=== PATIENT | female | born 1965 | race Caucasian/White ===

== ENCOUNTER → 2021-11-12 | Outpatient (CLI) | payer MEDICARE, BC ==
[~2021-11-12] MED LIST: B-12100010 PO; BUPR150T12 PO; D-50CAP PO; DULO1CAP5 PO; FAMO40TA3 PO; OXYB10TA23 PO; PANT40TA29 PO; PHEN30CA21 PO
== END ==
LOC: M SOG 08:41
PROVIDERS: ATTEND Orthopaedic Surgery
DX: M25.511 Pain in right shoulder (principal)

== ENCOUNTER → 2021-11-13 | Outpatient (CLI) | payer BC, MEDICARE | LOC: M PLAIMG 11:42 | PROVIDERS: ATTEND Nurse Practitioner Family | DX: S09.93XA Unspecified injury of face, initial encounter (principal); W19.XXXA Unspecified fall, initial encounter; J01.90 Acute sinusitis, unspecified; Y92.9 Unspecified place or not applicable; Y93.9 Activity, unspecified; Y99.9 Unspecified external cause status ==

== ENCOUNTER → 2021-11-17 | Outpatient (CLI) | payer BC, MEDICARE ==
[~2021-11-17] VITALS: Ht 160 cm; Wt 97.5 kg
== END ==
LOC: M LABSMTC 11:02 → EDSTATUS 14:00
PROVIDERS: ATTEND Otolaryngology
DX: Z01.812 Encounter for preprocedural laboratory examination (principal); Z20.822 Contact with and (suspected) exposure to COVID-19

== ENCOUNTER → 2021-11-25 | Outpatient (CLI) | payer BC, MEDICARE | LOC: M LABSMTC 11:41 | PROVIDERS: ATTEND Anesthesiology | DX: Z01.812 Encounter for preprocedural laboratory examination (principal); Z20.822 Contact with and (suspected) exposure to COVID-19 ==

== ENCOUNTER 2021-11-27 11:34 | Day surgery (SDC) | payer BC, MEDICARE ==
[~2021-11-27] VITALS: Ht 160 cm; Wt 100.2 kg
[~2021-11-27 11:34] MED LIST changes: +dexameTHASONE 4 MG/ML 1ML VIAL (J1100 PER 1MG) IV ONE
[2021-11-27] MEDS ORDERED: LR 1,000 ML IV SCH ×2 (12:35→15:15)
[2021-11-27] MEDS ORDERED: propofoL 200 MG/20 ML VIAL As Ordered ONE (14:31)
[2021-11-27] MEDS ORDERED: LIDOCAINE 2% 100MG/5ML SDV (FOR ANES.) As Ordered ONE (14:31)
[2021-11-27] MEDS ORDERED: ONDANSETRON 4MG 2ML VIAL As Ordered ONE (14:31)
[2021-11-27] MEDS ORDERED: fentaNYL 100 MCG/2 ML INJECTION As Ordered ONE (14:31)
[2021-11-27] MEDS ORDERED: dexameTHASONE 4 MG/ML 1ML VIAL (J1100 PER 1MG) As Ordered ONE ×2 (14:31→14:32)
[2021-11-27] MEDS ORDERED: ROCURONIUM BROMIDE 50 MG/5 ML VIAL As Ordered ONE (14:31)
[2021-11-27] MEDS ORDERED: MIDAZOLAM INJ 2MG/2ML VIAL (J2250 PER 1MG) As Ordered ONE (14:31)
[2021-11-27] MEDS ORDERED: SUCCINYLCHOLINE 100 MG/5 ML SYRINGE (J0330) As Ordered ONE (14:31)
[2021-11-27] MEDS ORDERED: ACETAMINOPHEN 1000MG 100ML IV BTL (OFIRMEV) (J0131 PER 10MG) As Ordered ONE (14:38)
[2021-11-27] MEDS ORDERED: METHYLENE BLUE 0.5% (5MG/ML) 10 ML AMP (PROVAYBLUE) As Ordered ONE (15:07)
[2021-11-27] MEDS ORDERED: EPINEPHrine 1MG/ML INJ 30ML MD-VIAL As Ordered ONE (15:07)
[2021-11-27] MEDS ORDERED: ONDANSETRON 4MG 2ML VIAL IV PRN (15:15)
[2021-11-27] MEDS ORDERED: oxyCODONE 5MG TAB PO PRN (15:15)
[2021-11-27] MEDS: fentaNYL 100 MCG/2 ML INJECTION IV PRN ×4 (15:37→15:52)
[2021-11-27 16:58] VITALS: BP 160/80
== END 2021-11-27 17:25 | disposition home or self-care (01) ==
LOC: M SDC 11:34
PROVIDERS: ATTEND Otolaryngology
DX: S02.2XXA Fracture of nasal bones, initial encounter for closed fracture (principal); W19.XXXA Unspecified fall, initial encounter; Y92.89 Other specified places as the place of occurrence of the external cause; Y93.9 Activity, unspecified; Y99.9 Unspecified external cause status; I10 Essential (primary) hypertension; K44.9 Diaphragmatic hernia without obstruction or gangrene; K21.9 Gastro-esophageal reflux disease without esophagitis; J34.2 Deviated nasal septum; F41.9 Anxiety disorder, unspecified; F32.A Depression, unspecified; Z79.899 Other long term (current) drug therapy
CPT/HCPCS: 21320; J0131; J0171; J0330; J1100; J2250; J2405; J3010; Q9968